=== PATIENT | female | born 1960 | race Caucasian/White ===

== ENCOUNTER 2021-10-02 08:31 | Outpatient (RCR) | payer MEDICARE | END 2021-10-13 | disposition home or self-care (01) | LOC: MKS.ESL.PT | DX: I89.0 Lymphedema, not elsewhere classified (principal) ==

== ENCOUNTER → 2023-05-20 | Outpatient (CLI) | payer MEDICARE, MEDICAID ==
[~2023-05-20] VITALS: Ht 162.6 cm; Wt 104.5 kg
[~2023-05-20] MED LIST: ASPIRIN E.C. 8181 MG PO; ASTELIN NASAL S34 ML NS; ATIVAN 0.50.5 MG/TAB PO; ATROVENT I0.2 MG/1 M IH; CLARITIN 1010 MG/TAB PO; COZAAR 25MG25 MG/TAB PO; DESYREL 50MG50 MG PO; LEXAPRO 10MG10 MG PO; LR 1,000 ML IV SCH; Lidocaine PF 2% (20 MG/ML) 5 ML VIAL ONE; MASON NATURAL2000 IU PO; PROVENTIL0.09 MG/A1 IH; REFRESH LIQUIGE15 M1 OP; SYNTHROID0.05 MG/TA PO; ZYPREXA10 MG PO
[2023-05-20 09:20] VITALS: BP 176/108; PULSE 112; TEMP 98.6
[2023-05-20 10:55] VITALS: BP 142/84; PULSE 100
[2023-05-20 11:33] VITALS: BP 162/92; PULSE 98
== END ==
LOC: COL.RAD 07:52
DX: G91.9 Hydrocephalus, unspecified (principal); I63.89 Other cerebral infarction; R90.82 White matter disease, unspecified
CPT/HCPCS: J2704; J7120

== ENCOUNTER → 2023-06-02 | Outpatient (CLI) | payer MEDICARE, MEDICAID ==
[~2023-06-02] MED LIST changes: -LR 1,000 ML IV SCH; -Lidocaine PF 2% (20 MG/ML) 5 ML VIAL ONE
== END ==
LOC: MC.RAD 09:00
DX: Z12.31 Encounter for screening mammogram for malignant neoplasm of breast (principal)